=== PATIENT | female | born 1975 | race Caucasian/White ===

== ENCOUNTER 2016-11-24 12:40 | Emergency (ER) | payer BC ==
[~2016-11-24] VITALS: Ht 160 cm; Wt 126.6 kg
[2016-11-24] MEDS ORDERED: IV NORMAL SALINE 1000ML BAG 1,000 ML IV SCH (13:16)
--- NOTE | 2016-11-24 13:16 | PHYS DOC ---
Past Medical History Past Medical History: COPD, Fibromyalgia, Hypertension, Migraines, Other Additional Past Medical Histor: rapid heart rate Past Surgical History: Appendectomy, Cholecystectomy, Hysterectomy, Tonsillectomy, Other Additional Past Surgical Histo: addenoidectomy, CTR, eye surgery Additional Information: 11/09 ppd Alcohol Use: None Drug Use: None Adult General Chief Complaint Chief Complaint: NAUSEA/VOMITING/DIARRHA HPI HPI Patient is a 41 year old female who presents with body aches, nausea/vomiting, migraine. Patient reports she has had symptoms for the past 2 days. She also reports diarrhea, slight shortness of breath. She has been coughing a lot. She has tried some tramadol at home with insufficient relief. Due to mention of sharp pain in her chest she was given aspirin and nitroglycerin by EMS en route. No clear inciting or mitigating factors. Review of Systems Review of Systems Constitutional: Denies fever or chills Eyes: Denies change in visual acuity or eye pain HENT: Congestion Respiratory: Cough, shortness of breath Cardiovascular: Sharp, stabbing pain GI: Nausea/vomiting/diarrhea. Denies abdominal pain, bloody stools : Denies dysuria or hematuria Musculoskeletal: General body aches Integument: Denies rash or skin lesions Neurologic: Migraine (similar to prior). Denies focal weakness or sensory changes Current Medications Current Medications Current Medications Medications (Trade) Dose Ordered Sig/[facility]a Start Time Stop Time Status Last Admin Dose Admin Famotidine (Pepcid) 20 mg 1X ONCE 11/24/16 13:30 11/24/16 13:31 DC 11/24/16 13:30 20 MG Morphine Sulfate 4 mg 1X ONCE 11/24/16 13:30 11/24/16 13:31 DC 11/24/16 13:29 4 MG Prochlorperazine Edisylate (Compazine) 10 mg 1X ONCE 11/24/16 13:30 11/24/16 13:31 DC 11/24/16 13:31 10 MG Sodium Chloride (Iv Sodium Chloride 0.9% 1000ml Bag) 1,000 ml @ 1,000 mls/hr Q1H 11/24/16 13:16 11/24/16 14:15 DC 11/24/16 13:26 1,000 MLS/HR Allergies Allergies Allergies Coded Allergies Type Severity Reaction Last Updated Verified acetaminophen Allergy Severe throat swelling 11/24/16 Yes latex Allergy Severe anaphylaxis 11/24/16 Yes levofloxacin Allergy Severe rash 11/24/16 Yes Estrogens Allergy Intermediate rash 11/24/16 Yes Penicillins Allergy Unknown 11/24/16 Yes theophylline Allergy Unknown 11/24/16 Yes egg Adverse Reaction Intermediate nausea, vomiting 11/24/16 Yes Physical Exam Physical Exam Constitutional: Well developed, well nourished, no acute distress, non-toxic appearance HENT: Normocephalic, atraumatic, bilateral external ears normal Eyes: PERRL, EOMI, conjunctiva normal, no discharge Neck: Normal range of motion, no stridor Cardiovascular: Heart rate normal, regular rhythm, no murmur Lungs & Thorax: Bilateral breath sounds clear to auscultation Abdomen: Bowel sounds normal, soft, non-distended, no TTP Skin: Warm, dry, no erythema, no rash Extremities: No obvious deformity, no edema Neurologic: Alert and oriented X 3, no gross deficits noted Current Patient Data Vital Signs Vital Signs Date Time Temp Pulse Resp B/P Pulse Ox O2 Delivery O2 Flow Rate FiO2 11/24/16 15:16 68 16 118/74 95 11/24/16 14:06 Room Air 11/24/16 12:48 97.9 97.9 Lab Values Laboratory Tests Test 11/24/16 12:56 11/24/16 14:55 White Blood Count 11.2x10^3/uL (4.0-11.0) H Red Blood Count 5.07x10^6/uL (3.50-5.40) Hemoglobin 14.7g/dL (12.0-15.5) Hematocrit 44.0% (36.0-47.0) Mean Corpuscular Volume 87fL (79-100) Mean Corpuscular Hemoglobin 29pg (25-35) Mean Corpuscular Hemoglobin Concent 33g/dL (31-37) Red Cell Distribution Width 14.1% (11.5-14.5) Platelet Count 259x10^3/uL (140-400) Neutrophils (%) (Auto) 67% (31-73) Lymphocytes (%) (Auto) 24% (24-48) Monocytes (%) (Auto) 6% (0-9) Eosinophils (%) (Auto) 2% (0-3) Basophils (%) (Auto) 0% (0-3) Neutrophils # (Auto) 7.5x10^3uL (1.8-7.7) Lymphocytes # (Auto) 2.7x10^3/uL (1.0-4.8) Monocytes # (Auto) 0.7x10^3/uL (0.0-1.1) Eosinophils # (Auto) 0.2x10^3/uL (0.0-0.7) Basophils # (Auto) 0.0x10^3/uL (0.0-0.2) Sodium Level 140mmol/L (136-145) Potassium Level 4.4mmol/L (3.5-5.1) Chloride Level 104mmol/L (98-107) Carbon Dioxide Level 26mmol/L (21-32) Anion Gap 10 (6-14) Blood Urea Nitrogen 10mg/dL (7-20) Creatinine 0.7mg/dL (0.6-1.0) Estimated GFR (Cockcroft-Gault) 93.2 Glucose Level 112mg/dL (70-99) H Calcium Level 9.3mg/dL (8.5-10.1) Total Bilirubin 0.6mg/dL (0.2-1.0) Direct Bilirubin 0.1mg/dL (0.0-0.2) Aspartate Amino Transferase (AST) 18U/L (15-37) Alanine Aminotransferase (ALT) 27U/L (14-59) Alkaline Phosphatase 84U/L (46-116) Troponin I Quantitative < 0.017ng/mL (0.000-0.055) Total Protein 7.0g/dL (6.4-8.2) Albumin 3.7g/dL (3.4-5.0) Lipase 105U/L (73-393) Urine Collection Type Unknown Urine Color Yellow Urine Clarity Clear Urine pH 7.0 Urine Specific [place] <=1.005 Urine Protein Negativemg/dL (NEG-TRACE) Urine Glucose (UA) Negativemg/dL (NEG) Urine Ketones (Stick) Negativemg/dL (NEG) Urine Blood Negative (NEG) Urine Nitrite Negative (NEG) Urine Bilirubin Negative (NEG) Urine Urobilinogen Dipstick 1.0mg/dL (0.2 mg/dL) Urine Leukocyte Esterase Negative (NEG) Urine RBC 0/HPF (0-2) Urine WBC 0/HPF (0-4) Urine Squamous Epithelial Cells Few/LPF Urine Bacteria Few/HPF (0-FEW) Urine Test Negative (NEG) Laboratory Tests 11/24/16 12:56 Laboratory Tests 11/24/16 12:56 EKG EKG EKG (my read): sinus rhythm, rate 79, normal axis, intervals wnl, no acute ischemic changes Radiology/Procedures Radiology/Procedures CXR: IMPRESSION: Mild right parahilar linear atelectasis or scarring. Course & Med Decision Making Course & Med Decision Making Pertinent Labs and Imaging studies reviewed. (See chart for details) Patient is 41 year old female who presents with N/V, body aches, migraine, chest pain. Suspect viral illness; chest pain likely related to esophageal irritation from repeated vomiting. Very low suspicion for ACS. Already given ASA by EMS. Regardless will check EKG, CXR, labs, UA. IVF, pain meds, pepcid, nausea meds ordered for relief of symptoms. EKG ok per my read. CXR results as above. Labs notable for minimal leukocytosis. Troponin wnl; given duration of chest pain, this is sufficient to r/o PA. Discussed results with patient. Will plan discharge home rx for nausea meds and instructions for use of NSAIDs ( patient declined rx for naproxen as she already has it at home). Discharged with instructions for follow up and return precautions. Dragon Disclaimer Dragon Disclaimer This electronic medical record was generated, in whole or in part, using a voice recognition dictation system. Departure Departure Impression: Primary Impression: Viral syndrome Disposition: 01 HOME, SELF-CARE Condition: STABLE Referrals: NO PCP (PCP) Patient Instructions: Viral Syndrome Additional Instructions: Thank you for allowing us to provide care today in the Emergency Department. Take the provided medication as directed. Use caution when taking the promethazine as it can make you drowsy. Do not use the oral tablets and suppositories at the same time. Use naproxen to help with fever and body aches. Follow the directions on the label. Schedule a follow up appointment with your primary care doctor. Return promptly to the Emergency Department if you develop any new or concerning symptoms. Scripts Promethazine Hcl 25 Mg Supp.rect25 Mg RC Q6H PRN NAUSEA/VOMITING #10 SUPP.RECT Do not use if tolerating the oral promethazine tablets Prov:LOREN LOJA MD 11/24/16 Promethazine Hcl 25 Mg Jezydh27 Mg PO Q6H PRN NAUSEA/VOMITING #15 TAB Prov:LOREN LOJA MD 11/24/16 Ondansetron (Zofran Odt)4 Mg Tab.rapdis4 Mg PO Q8HRS PRN NAUSEA/VOMITING #10 TAB Prov:LOREN LOJA MD 11/24/16 LOREN LOJA MD Nov 24, 2016 13:16
[2016-11-24 13:28] LABS: BASO % 0 % (0-3); EOS % 2 % (0-3); HEMOGLOBIN 14.7 g/dL (12.0-15.5); LYMPH # 2.7 x10^3/uL (1.0-4.8); LYMPH % 24 % (24-48); MEAN CORPUSCULAR HEMOGLOBIN 29 pg (25-35); MEAN CORPUSCULAR HGB CONC 33 g/dL (31-37); MEAN CORPUSCULAR VOLUME 87 fL (79-100); MONO % 6 % (0-9); NEUT % 67 % (31-73); PLATELET COUNT 259 x10^3/uL (140-400); RED BLOOD COUNT 5.07 x10^6/uL (3.50-5.40); RED CELL DISTRIBUTION WIDTH 14.1 % (11.5-14.5); WHITE BLOOD COUNT 11.2 x10^3/uL (4.0-11.0)
[2016-11-24] MEDS ORDERED: PROCHLORPERAZINE 10 MG/2 ML VIAL. IV ONE (13:30)
[2016-11-24] MEDS ORDERED: FAMOTIDINE 20 MG/2 ML VIAL IVP ONE (13:30)
[2016-11-24] MEDS ORDERED: MORPHINE SULFATE 4 MG/ML DISP.SYRIN. IV ONE (13:30)
[2016-11-24 13:33] LABS: CALCIUM 9.3 mg/dL (8.5-10.1); CREATININE 0.7 mg/dL (0.6-1.0); GFR 93.2; POTASSIUM 4.4 mmol/L (3.5-5.1)
[2016-11-24 13:39] LABS: ALBUMIN 3.7 g/dL (3.4-5.0); DIRECT BILIRUBIN 0.1 mg/dL (0.0-0.2); TOTAL BILIRUBIN 0.6 mg/dL (0.2-1.0)
--- NOTE | 2016-11-24 13:54 | EKG ---
[facility] [address] [place] [address] Test Date: 2016-11-24 Test Time: 12:52:26 Pat Name: YESSICA GUTIERREZ Department: Room: Gender: F Batt Packer: : [id number] Requested By: LOREN LOJA Order Number: [id number] Reading MD: Sharron Hedrick Measurements Intervals [place] Rate: 79 P: 48 MI: 116 QRS: 38 QRSD: 106 T: 43 QT: 378 QTc: 440 Interpretive Statements SINUS RHYTHM NO SPECIFIC ECG ABNORMALITIES RI6.01 No previous ECG available for comparison Electronically Signed On 11-27-2016 0:04:57 COOPERATIVE EDUCATION DIRECTOR by Sharron Hedrick
--- NOTE | 2016-11-24 14:21 | RAD ---
Chest, 2 views, 11/24/2016: History: Chest pain and vomiting The heart size and pulmonary vascularity are normal. There is mild linear atelectasis or scarring in the right parahilar region. The left lung is clear. There is no evidence of pleural fluid. Mild scattered spurs are present in the spine. There is an old healed left clavicular fracture. IMPRESSION: Mild right parahilar linear atelectasis or scarring.
[2016-11-24 15:16] VITALS: BP 118/74
[2016-11-24 15:39] LABS: NEG OBC UR NEG; POS OBC UR POS
[2016-11-24 15:44] LABS: BILIRUBIN,URINE NEGATIVE (NEG); GLUCOSE,URINE NEGATIVE (NEG); NITRITE,URINE NEGATIVE (NEG); PROTEIN,URINE NEGATIVE (NEG-TRACE)
[2016-11-24 16:01] LABS: BACTERIA,URINE FEW /HPF (0-FEW); RBC,URINE 0 /HPF (0-2); SQUAMOUS EPITHELIAL CELL,UR FEW /LPF; WBC,URINE 0 /HPF (0-4)
[2016-11-24] MEDS ORDERED: ONDA4TAB10 PO (16:14)
[2016-11-24] MEDS ORDERED: PROM25SU33 RC (16:14)
[2016-11-24] MEDS ORDERED: PROM25TA10 PO (16:14)
== END 2016-11-24 16:35 | disposition home or self-care (01) ==
LOC: ER 12:40
DX: B34.9 Viral infection, unspecified (principal); R07.9 Chest pain, unspecified; I10 Essential (primary) hypertension; G43.909 Migraine, unspecified, not intractable, without status migrainosus; J44.9 Chronic obstructive pulmonary disease, unspecified; M79.7 Fibromyalgia; Z90.49 Acquired absence of other specified parts of digestive tract; Z90.710 Acquired absence of both cervix and uterus; F17.200 Nicotine dependence, unspecified, uncomplicated; Z88.8 Allergy status to other drugs, medicaments and biological substances; Z88.0 Allergy status to penicillin; Z91.012 Allergy to eggs; Z91.040 Latex allergy status; Z88.6 Allergy status to analgesic agent
CPT/HCPCS: 36415; 71020; 80048; 80076; 81001; 81025; 83690; 84484; 85027; 93005; 96361; 96374; 96375; 99285; J0780; J2270; J7030; S0028

== ENCOUNTER 2017-03-31 10:16 | Emergency (ER) | payer BC ==
[~2017-03-31] VITALS: Ht 160 cm; Wt 124.7 kg
[~2017-03-31 10:16] MED LIST: ONDA4TAB10 PO; PROM25SU33 RC; PROM25TA10 PO
[2017-03-31] MEDS ORDERED: PROCHLORPERAZINE 10 MG/2 ML VIAL. IV ONE (11:00)
[2017-03-31] MEDS ORDERED: diphenhydrAMINE 50 MG/ML VIAL IVP ONE (11:00)
[2017-03-31] MEDS ORDERED: KETOROLAC TROMETHAMINE 30 MG/ML INJ. IV ONE (11:00)
--- NOTE | 2017-03-31 11:14 | PHYS DOC ---
Past Medical History Past Medical History: COPD, Diabetes-Type II, Fibromyalgia, Hypertension, Migraines, Other Additional Past Medical Histor: rapid heart rate Past Surgical History: Appendectomy, Cholecystectomy, Hysterectomy, Tonsillectomy, Other Additional Past Surgical Histo: addenoidectomy, CTR, eye surgery Alcohol Use: None Drug Use: None Adult General Chief Complaint Chief Complaint: HEADACHE HPI HPI Patient is a 42 year old female with migraines who presents with gradual onset headache associated with nausea, photophobia, phonophobia that is typical of her migraine. She has increased stress at this time because of her husbands hospitalization. She notes constant headache that is aching and throbbing she denies vision changes, dizziness, numbness, tingling, weakness, neck pain or manipulation, chest pain, palpitations, dyspnea, fever or chills, emesis. Review of Systems Review of Systems Constitutional: Denies fever or chills [] Eyes: Denies change in visual acuity, redness, or eye pain [] HENT: Denies nasal congestion or sore throat [] Respiratory: Denies cough or shortness of breath [] Cardiovascular: No additional information not addressed in HPI [] GI: Denies abdominal pain, vomiting, bloody stools or diarrhea [] : Denies dysuria or hematuria [] Musculoskeletal: Denies back pain or joint pain [] Integument: Denies rash or skin lesions [] Neurologic: Denies focal weakness or sensory changes [] Endocrine: Denies polyuria or polydipsia [] Current Medications Current Medications Current Medications Medications (Trade) Dose Ordered Sig/Maya Start Time Stop Time Status Last Admin Dose Admin Diphenhydramine HCl (Benadryl) 25 mg 1X ONCE 03/31/17 11:00 03/31/17 11:01 DC 03/31/17 11:32 25 MG Ketorolac Tromethamine (Toradol) 15 mg 1X ONCE 03/31/17 11:00 03/31/17 11:01 DC 03/31/17 11:32 15 MG Prochlorperazine Edisylate (Compazine) 10 mg 1X ONCE 03/31/17 11:00 03/31/17 11:01 DC 03/31/17 11:32 10 MG Allergies Allergies Allergies Coded Allergies Type Severity Reaction Last Updated Verified acetaminophen Allergy Severe throat swelling 11/24/16 Yes latex Allergy Severe anaphylaxis 11/24/16 Yes levofloxacin Allergy Severe rash 11/24/16 Yes Estrogens Allergy Intermediate rash 11/24/16 Yes Penicillins Allergy Unknown 11/24/16 Yes theophylline Allergy Unknown 11/24/16 Yes egg Adverse Reaction Intermediate nausea, vomiting 11/24/16 Yes Physical Exam Physical Exam Constitutional: Well developed, well nourished, no acute distress, non-toxic appearance. [] HENT: Normocephalic, atraumatic, bilateral external ears normal, oropharynx moist, no oral exudates, nose normal. [] Eyes: PERRLA, EOMI, conjunctiva normal, no discharge. [] Neck: Normal range of motion, supple. [] Cardiovascular:Heart rate regular rhythm [] Lungs & Thorax: Bilateral breath sounds clear to auscultation [] Abdomen: Bowel sounds normal, soft, no tenderness. [] Skin: Warm, dry, no erythema, no rash. [] Back: Normal range of motion. [] Extremities: No tenderness, ROM intact, no edema. [] Neurologic: Alert and oriented X 3, normal motor function, normal sensory function, no focal deficits noted, cranial nerves II through XII intact. [] Psychologic: Affect normal, judgement normal, mood normal. [] Current Patient Data Vital Signs Vital Signs Date Time Temp Pulse Resp B/P (MAP) Pulse Ox O2 Delivery O2 Flow Rate FiO2 03/31/17 10:43 98.0 92 18 165/93 (117) 96 Room Air 98.0 Course & Med Decision Making Course & Med Decision Making Pertinent Labs and Imaging studies reviewed. (See chart for details) Headache is improved after medications and she is ready to go. Return precautions given. She understands and agrees with plan. Dragon Disclaimer Dragon Disclaimer This electronic medical record was generated, in whole or in part, using a voice recognition dictation system. Departure Departure Impression: Primary Impression: Migraine Disposition: 01 HOME, SELF-CARE Condition: STABLE Referrals: ANGEL KASPER MD Patient Instructions: Recurrent Migraine Headache, [id number] Additional Instructions: Follow-up with your primary care doctor or neurology clinic. Please call for appointment. Return for any concerns. Problem Qualifiers Primary Impression: Migraine Migraine type: unspecified Status migrainosus presence: without status migrainosus Intractability: not intractable Qualified Codes: G43.909 - Migraine, unspecified, not intractable, without status migrainosus Raul JOINER MD March 31, 2017 11:14
[2017-03-31 12:39] VITALS: BP 102/77
== END 2017-03-31 12:45 | disposition home or self-care (01) ==
LOC: ER 10:16
DX: G43.909 Migraine, unspecified, not intractable, without status migrainosus (principal); J44.9 Chronic obstructive pulmonary disease, unspecified; E11.9 Type 2 diabetes mellitus without complications; I10 Essential (primary) hypertension; M79.7 Fibromyalgia; Z88.0 Allergy status to penicillin; Z88.8 Allergy status to other drugs, medicaments and biological substances; Z88.6 Allergy status to analgesic agent; Z88.1 Allergy status to other antibiotic agents; Z91.012 Allergy to eggs; Z91.040 Latex allergy status
CPT/HCPCS: 96374; 96375; 99284; J0780; J1200; J1885

== ENCOUNTER 2017-04-15 03:10 | Inpatient (IN) | payer BC ==
[~2017-04-15] VITALS: Ht 157.5 cm; Wt 124.7 kg
--- NOTE | 2017-04-15 03:21 | PHYS DOC ---
Past Medical History Past Medical History: COPD, Diabetes-Type II, Fibromyalgia, Hypertension, Migraines, Other Additional Past Medical Histor: rapid heart rate Past Surgical History: Appendectomy, Cholecystectomy, Hysterectomy, Tonsillectomy, Other Additional Past Surgical Histo: addenoidectomy, CTR, eye surgery Alcohol Use: None Drug Use: None Adult General Chief Complaint Chief Complaint: CHEST PAIN HPI HPI Patient is a 42 year old female presenting to the emergency department for evaluation of chest pain that started at work shortly prior to arrival. Patient states that she was at work doing her usual rounds not particularly exerting herself when she felt a heavy sensation on her left chest that caused her nausea vomiting diaphoresis and shortness of breath. She says that the nitroglycerin in route helped her pain and she was given a full dose aspirin. Patient says that she has diabetes hypertension and high cholesterol but she has not been taking her blood pressure medication that she cannot afford it. Patient says that she had a heart attack in 2012 but has had no stents placed. Patient is in no obvious distress with normal vital signs except mild hypertension. Review of Systems Review of Systems Constitutional: Denies fever or chills [] Eyes: Denies change in visual acuity, redness, or eye pain [] HENT: Denies nasal congestion or sore throat [] Respiratory: Denies cough. + shortness of breath [] Cardiovascular: + CP GI: Denies abdominal pain. + nausea, vomiting. No bloody stools or diarrhea [] : Denies dysuria or hematuria [] Musculoskeletal: Denies back pain or joint pain [] Integument: Denies rash or skin lesions [] Neurologic: Denies headache, focal weakness or sensory changes [] Current Medications Current Medications Current Medications Medications (Trade) Dose Ordered Sig/[facility] Start Time Stop Time Status Last Admin Dose Admin Morphine Sulfate 5 mg 1X ONCE 04/15/17 04:00 04/15/17 04:01 DC 04/15/17 04:03 5 MG Ondansetron HCl (Zofran) 8 mg 1X ONCE 04/15/17 04:00 04/15/17 04:01 DC 04/15/17 04:03 8 MG Allergies Allergies Allergies Coded Allergies Type Severity Reaction Last Updated Verified acetaminophen Allergy Severe throat swelling 11/24/16 Yes latex Allergy Severe anaphylaxis 11/24/16 Yes levofloxacin Allergy Severe rash 11/24/16 Yes Estrogens Allergy Intermediate rash 11/24/16 Yes Penicillins Allergy Intermediate 04/15/17 Yes theophylline Allergy Intermediate 04/15/17 Yes egg Adverse Reaction Intermediate nausea, vomiting 11/24/16 Yes Physical Exam Physical Exam Constitutional: Well developed, well nourished, no acute distress, non-toxic appearance. [] HENT: Normocephalic, atraumatic, bilateral external ears normal, oropharynx moist, no oral exudates, nose normal. [] Eyes: PERRLA, EOMI, conjunctiva normal, no discharge. [] Neck: Normal range of motion, no tenderness, supple, no stridor. [] Cardiovascular:Heart rate regular rhythm, no murmur [] Lungs & Thorax: Bilateral breath sounds clear to auscultation [] Abdomen: Bowel sounds normal, soft, no tenderness, no masses, no pulsatile masses. [] Skin: Warm, dry, no erythema, no rash. [] Back: No tenderness, no CVA tenderness. [] Extremities: No tenderness, no cyanosis, no clubbing, ROM intact, no edema. [] Neurologic: Alert and oriented X 3, normal motor function, normal sensory function, no focal deficits noted. [] Psychologic: Affect normal, judgement normal, mood normal. [] Current Patient Data Vital Signs Vital Signs Date Time Temp Pulse Resp B/P (MAP) Pulse Ox O2 Delivery O2 Flow Rate FiO2 04/15/17 03:22 98.0 93 20 156/94 (114) 96 Room Air 98.0 Lab Values Laboratory Tests Test 04/15/17 03:45 04/15/17 03:47 White Blood Count 11.3 x10^3/uL (4.0-11.0) H Red Blood Count 4.71 x10^6/uL (3.50-5.40) Hemoglobin 13.9 g/dL (12.0-15.5) Hematocrit 41.6 % (36.0-47.0) Mean Corpuscular Volume 88 fL (79-100) Mean Corpuscular Hemoglobin 30 pg (25-35) Mean Corpuscular Hemoglobin Concent 34 g/dL (31-37) Red Cell Distribution Width 14.4 % (11.5-14.5) Platelet Count 276 x10^3/uL (140-400) Neutrophils (%) (Auto) 47 % (31-73) Lymphocytes (%) (Auto) 41 % (24-48) Monocytes (%) (Auto) 7 % (0-9) Eosinophils (%) (Auto) 5 % (0-3) H Basophils (%) (Auto) 1 % (0-3) Neutrophils # (Auto) 5.3 x10^3uL (1.8-7.7) Lymphocytes # (Auto) 4.7 x10^3/uL (1.0-4.8) Monocytes # (Auto) 0.8 x10^3/uL (0.0-1.1) Eosinophils # (Auto) 0.5 x10^3/uL (0.0-0.7) Basophils # (Auto) 0.1 x10^3/uL (0.0-0.2) Prothrombin Time 12.1 SEC (11.7-14.0) Prothrombin Time INR 1.0 (0.8-1.1) PTT 27 SEC (24-38) Sodium Level 141 mmol/L (136-145) Potassium Level 3.7 mmol/L (3.5-5.1) Chloride Level 103 mmol/L (98-107) Carbon Dioxide Level 27 mmol/L (21-32) Anion Gap 11 (6-14) Blood Urea Nitrogen 7 mg/dL (7-20) Creatinine 0.9 mg/dL (0.6-1.0) Estimated GFR (Cockcroft-Gault) 69.3 BUN/Creatinine Ratio 8 (6-20) Glucose Level 119 mg/dL (70-99) H Calcium Level 9.0 mg/dL (8.5-10.1) Magnesium Level 2.2 mg/dL (1.8-2.4) Total Bilirubin 0.3 mg/dL (0.2-1.0) Aspartate Amino Transferase (AST) 76 U/L (15-37) H Alanine Aminotransferase (ALT) 151 U/L (14-59) H Alkaline Phosphatase 94 U/L (46-116) Creatine Kinase 72 U/L (26-192) Troponin I Quantitative < 0.017 ng/mL (0.000-0.055) PR-Ujr-M-Type Natriuretic Peptide 8 pg/mL (0-124) Total Protein 7.3 g/dL (6.4-8.2) Albumin 3.3 g/dL (3.4-5.0) L Albumin/Globulin Ratio 0.8 (1.0-1.7) L POC Troponin I 0.00 ng/ml (<0.08) Laboratory Tests 04/15/17 03:45 Laboratory Tests 04/15/17 03:45 EKG EKG Sinus rhythm at 95 bpm with normal axis no obvious ST elevation or depression and normal T waves. Radiology/Procedures Radiology/Procedures Chest x-ray shows normal mediastinum and normal heart size no obvious free air pneumothorax or opacity Course & Med Decision Making Course & Med Decision Making Patient has some typical features to her pain and she has multiple risk factors so she will be admitted to the hospital. Dragon Disclaimer Dragon Disclaimer This electronic medical record was generated, in whole or in part, using a voice recognition dictation system. Departure Departure Impression: Primary Impression: Chest pain Additional Impression: Transaminitis Disposition: ADMITTED INPATIENT Admitting Physician: Prasanna Lawton Condition: STABLE Referrals: UNKNOWN PCP NAME (PCP) Problem Qualifiers Primary Impression: Chest pain Chest pain type: unspecified Qualified Codes: R07.9 - Chest pain, unspecified AKILA RED DO Apr 15, 2017 03:21
[2017-04-15 03:54] LABS: BASO # 0.1 x10^3/uL (0.0-0.2); BASO % 1 % (0-3); EOS % 5 % (0-3); HEMATOCRIT 41.6 % (36.0-47.0); HEMOGLOBIN 13.9 g/dL (12.0-15.5); LYMPH # 4.7 x10^3/uL (1.0-4.8); LYMPH % 41 % (24-48); MEAN CORPUSCULAR HEMOGLOBIN 30 pg (25-35); MEAN CORPUSCULAR HGB CONC 34 g/dL (31-37); MEAN CORPUSCULAR VOLUME 88 fL (79-100); MONO % 7 % (0-9); NEUT % 47 % (31-73); PLATELET COUNT 276 x10^3/uL (140-400); RED BLOOD COUNT 4.71 x10^6/uL (3.50-5.40); RED CELL DISTRIBUTION WIDTH 14.4 % (11.5-14.5); WHITE BLOOD COUNT 11.3 x10^3/uL (4.0-11.0)
[2017-04-15] MEDS ORDERED: ONDANSETRON PF 4 MG/2 ML VIAL. IV ONE (04:00)
[2017-04-15] MEDS ORDERED: MORPHINE SULFATE 10 MG/ML VIAL. IV ONE (04:00)
[2017-04-15 04:05] LABS: PROTHROMBIN TIME PATIENT 12.1 SEC (11.7-14.0)
[2017-04-15 04:06] LABS: CREATININE 0.9 mg/dL (0.6-1.0); GFR 69.3; POTASSIUM 3.7 mmol/L (3.5-5.1)
[2017-04-15 04:12] LABS: ALBUMIN 3.3 g/dL (3.4-5.0); ALBUMIN/GLOBULIN RATIO 0.8 (1.0-1.7); MAGNESIUM 2.2 mg/dL (1.8-2.4); TOTAL BILIRUBIN 0.3 mg/dL (0.2-1.0); TOTAL PROTEIN 7.3 g/dL (6.4-8.2)
[2017-04-15] MEDS ORDERED: ONDANSETRON PF 4 MG/2 ML VIAL. IV PRN (04:15)
[2017-04-15] MEDS: fentaNYL PF VIAL 100 MCG/2 ML VIAL IV PRN ×4 (04:41→14:01)
--- NOTE | 2017-04-15 04:52 | ACF ---
Admission Forms Criteria CHEST PAIN Clinical Indications for Admission to Inpatient Care (Place 'X' for any and all applicable criteria): Admission is indicated for chest pain and ANY ONE of the following(1)(2)(3)(4)(5 ): [ ]I. Angina with acute coronary syndrome (Also use Myocardial Infarction or Angina guideline) [ ]II. Hemodynamic instability [ ]III. Angina needing acute intervention as indicated by ALL of the following( 11)(12): [ ]a) Unstable angina is present as indicated by angina that is ANY ONE of the following: [ ]i) New onset [ ]ii) Nocturnal [ ]iii) Prolonged at rest [ ]iv) Progressive [ ]b) Angina warrants acute intervention as indicated by ANY ONE of the following: [ ]i) Recurrent angina (e.g, not responding as previously to treatment) [ ]ii) Angina at rest or with low-level activities despite initial medical therapy [ ]iii) New or presumably new ST-segment depression on ECG [ ]iv) Signs or symptoms of heart failure (eg, dyspnea, pulmonary edema) [ ]v) New or worsening mitral regurgitation [ ]vi) Hemodynamic instability [ ]vii) Dangerous arrhythmia (eg, sustained ventricular tachycardia) [ ]viii) History of percutaneous coronary intervention within 6 months [ ]ix) History of coronary artery bypass graft surgery [ ]x) CHERYLE risk score of 2 or greater[A] [ ]xi) History of Diabetes(14) [ ]xii) High-risk cardiac ischemia findings on noninvasive testing (e.g, echocardiogram, treadmill testing, nuclear scan) [ ]xiii) Chronic renal insufficiency (ie, estimated GFR less than 60 mL/min/1.732m) [ ]xiv) Left ventricular ejection fraction less than 40% [ ]IV. Evidence of HI (eg, cardiac biomarkers positive, ST-segment elevation on ECG) also use Myocardial Infarction Criteria Form. [ ]V. Pulmonary edema [ ]. Respiratory distress [ ]VII. Chest pain indicative of serious diagnosis other than coronary artery disease (eg, aortic dissection) [ ]VIII. Contraindications and/or Inappropriate clinical situations for Observational Care in patients with Chest Pain, when ANY ONE of the following is required: [ ]a) Patient with risk factor for pulmonary embolism, acute coronary syndrome and myocardial infarction (18) [ ]b) Patient with Pulmonary embolism require an average LOS of 4.3 days, therefore emergency department observation management is inappropriate 18,23 [ ]c) Painful condition/s in the elderly, have the highest rate of recidivism after emergency department observation management (10.8%) 20,21,22 [ ]d) Elevated cardiac biomarker requires intensive and exhaustive care (19) [X]IX. General contraindications and/or Inappropriate clinical situations for Observational Care in patients with Chest Pain, when ANY ONE of the following is required: [X]a) Prediction of prolongation of LOS based on ANY ONE of the following may be considered as a contraindication for observational care 2, 3, 4, 5, 6, 7, 8, 9, 10, 11 [ ]i) Age > 65 yrs. [ ]ii) Patient arriving by ambulance [ ]iii) Patient with high acuity [X]iv) Patient requiring vital sign monitoring [ ]v) Patient on IV medication [ ]b) Systolic blood pressures 180mmHg 3,12 [ ]c) Patient with altered mental status including delirium and other alteration of consciousness, (3) [ ]d) Patient whose discharge disposition will be to a retirement home or rehabilitation home should not be managed in Emergency Department Observation Unit. CMS rule requires 3 days hospital stay before such placement. 3,13 [ ]e) Patient with failure to thrive due to broad array of etiologies 3,16,17 [ ]f) Inability to ambulate 3,14 Extended stay beyond goal length of stay may be needed for (1)(28): [ ]a) Specific condition diagnosed after evaluation (eg, pulmonary embolism, aortic dissection) [ ]b) Unstable angina [ ]c) Continued suspicion of acute coronary syndrome with inability to complete needed cardiac evaluation (eg, patient clinically unable to undergo stress testing) [ ]d) Myocardial infarction (Contents from ANGINA and CHEST PAIN clinical indications for admission to inpatient care have been integrated in this form) The original [facility] content created by [employer] has been revised. The portions of the content which have been revised are identified through the use of italic text or in bold, and [facility] has neither reviewed nor approved the modified material. All other unmodified content is copyright [employer]. Please see references footnoted in the original [facility] edition 2016 Admission Criteria Met?: Yes LUIS HEMPHILL Apr 15, 2017 04:52
[2017-04-15 05:20] VITALS: BP 133/98
--- NOTE | 2017-04-15 06:37 | EKG ---
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
[2017-04-15 07:00] VITALS: BP 118/80
--- NOTE | 2017-04-15 07:30 | RAD ---
Indication chest pain. A single view of the chest was obtained. Comparison is made to an examination November 24, 2016. The heart, pulmonary vessels and mediastinum appear normal. The lungs are clear. There is no pleural fluid or pneumothorax. There is a healed left clavicular fracture. IMPRESSION: No acute or focal process seen in the chest
--- NOTE | 2017-04-15 10:25 | PDOC2 ---
JAME AGUILAR TABLE RUNNER 04/15/17 1025: CARDIAC CONSULT DATE OF CONSULT Date of Consult DATE: 04/15/17 TIME: 10:18 REASON FOR CONSULT Reason for Consult: Chest Pain REFERRING PHYSICIAN Referring Physician: Dr. Stokes SOURCE Source: Chart review, Patient HISTORY OF PRESENT ILLNESS HISTORY OF PRESENT ILLNESS This is a 42 yo female who presented with complaints of chest pain. Patient reports pain began early this morning while at work. 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 Located in her left chest and radiated to left neck and to her left arm. Pain was initially pressure-like but eventually became stabbing in nature. Associated with "cold sweats" and nausea/ vomiting. Denies any shortness of breath, dizziness, or LE edema. Does have occasional palpitations. Chest pain has been continuous since admission, but is improved with fentanyl. Exacerbated by pressing on the left chest. Reports significant stress at home dye ti financial constraints. Is losing home and will have to move soon. Reports history of hypertension for which she was previously on metoprolol and lisinopril, but has not taken in 3-4 months. EKG without significant acute changes compared to study conducted 11/24/16. PAST MEDICAL HISTORY Cardiovascular: HTN, Hyperlipidemia Pulmonary: COPD CENTRAL NERVOUS SYSTEM: Periperal neuropathy GI: No pertinent hx Heme/Onc: Cancer (cervical ) Psych: Anxiety, Depression Rheumatologic: Fibromyalgia Endocrine: Diabetes PAST SURGICAL HISTORY Past Surgical History: Appendectomy, Cholecystectomy, Total knee replacement ( left ), Tonsillectomy (and adenoidectomy ), Hysterectomy FAMILY HISTORY Family History: Diabetes, Heart Disease, High Cholestrol, Hypertension SOCIAL HISTORY Smoke: <1 pack per day ALCOHOL: occassional Drugs: None Lives: with Family CURRENT MEDICATIONS CURRENT MEDICATIONS Current Medications Medications (Trade) Dose Ordered Sig/Maya Route PRN Reason Start Time Stop Time Status Last Admin Dose Admin Morphine Sulfate 5 mg 1X ONCE IV 04/15/17 04:00 04/15/17 04:01 DC 04/15/17 04:03 Ondansetron HCl (Zofran) 8 mg 1X ONCE IV 04/15/17 04:00 04/15/17 04:01 DC 04/15/17 04:03 Fentanyl Citrate (Fentanyl 2ml Vial) 50 mcg PRN Q2HR PRN IV SEVERE PAIN 04/15/17 04:15 04/16/17 04:14 04/15/17 06:34 ALLERGIES ALLERGIES: Coded Allergies: acetaminophen (Verified Allergy, Severe, throat swelling, 11/24/16) latex (Verified Allergy, Severe, anaphylaxis, 11/24/16) levofloxacin (Verified Allergy, Severe, rash, 11/24/16) Estrogens (Verified Allergy, Intermediate, rash, 11/24/16) Penicillins (Verified Allergy, Intermediate, 04/15/17) theophylline (Verified Allergy, Intermediate, 04/15/17) egg (Verified Adverse Reaction, Intermediate, nausea, vomiting, 11/24/16) ROS Review of System 14 point ROS conducted with pertinent positives noted above in HPI. PHYSICAL EXAM General: Alert, Oriented X3, Cooperative, No acute distress HEENT: Atraumatic Lungs: Clear to auscultation, Normal air movement Heart: Regular rate, Normal S1, Normal S2, No murmurs, Other (left chest tenderness upon palpation) Abdomen: Soft, No tenderness Extremities: No edema, Normal pulses Skin: No significant lesion Neuro: Normal speech, Sensation intact Psych/Mental Status: Mental status NL, Mood NL MUSCULOSKELETAL: No joint tenderness VITALS VITALS Vital Signs Date Time Temp Pulse Resp B/P (MAP) Pulse Ox O2 Delivery O2 Flow Rate FiO2 04/15/17 08:15 Room Air 04/15/17 07:20 95 04/15/17 07:00 98.4 72 20 118/80 (93) 98.4 LABS Lab: Laboratory Tests Test 04/15/17 03:45 04/15/17 03:47 White Blood Count 11.3 x10^3/uL (4.0-11.0) Red Blood Count 4.71 x10^6/uL (3.50-5.40) Hemoglobin 13.9 g/dL (12.0-15.5) Hematocrit 41.6 % (36.0-47.0) Mean Corpuscular Volume 88 fL (79-100) Mean Corpuscular Hemoglobin 30 pg (25-35) Mean Corpuscular Hemoglobin Concent 34 g/dL (31-37) Red Cell Distribution Width 14.4 % (11.5-14.5) Platelet Count 276 x10^3/uL (140-400) Neutrophils (%) (Auto) 47 % (31-73) Lymphocytes (%) (Auto) 41 % (24-48) Monocytes (%) (Auto) 7 % (0-9) Eosinophils (%) (Auto) 5 % (0-3) Basophils (%) (Auto) 1 % (0-3) Neutrophils # (Auto) 5.3 x10^3uL (1.8-7.7) Lymphocytes # (Auto) 4.7 x10^3/uL (1.0-4.8) Monocytes # (Auto) 0.8 x10^3/uL (0.0-1.1) Eosinophils # (Auto) 0.5 x10^3/uL (0.0-0.7) Basophils # (Auto) 0.1 x10^3/uL (0.0-0.2) Prothrombin Time 12.1 SEC (11.7-14.0) Prothromb Time International Ratio 1.0 (0.8-1.1) Activated Partial Thromboplast Time 27 SEC (24-38) Sodium Level 141 mmol/L (136-145) Potassium Level 3.7 mmol/L (3.5-5.1) Chloride Level 103 mmol/L (98-107) Carbon Dioxide Level 27 mmol/L (21-32) Anion Gap 11 (6-14) Blood Urea Nitrogen 7 mg/dL (7-20) Creatinine 0.9 mg/dL (0.6-1.0) Estimated GFR (Cockcroft-Gault) 69.3 BUN/Creatinine Ratio 8 (6-20) Glucose Level 119 mg/dL (70-99) Calcium Level 9.0 mg/dL (8.5-10.1) Magnesium Level 2.2 mg/dL (1.8-2.4) Total Bilirubin 0.3 mg/dL (0.2-1.0) Aspartate Amino Transf (AST/SGOT) 76 U/L (15-37) Alanine Aminotransferase (ALT/SGPT) 151 U/L (14-59) Alkaline Phosphatase 94 U/L (46-116) Creatine Kinase 72 U/L (26-192) Troponin I Quantitative < 0.017 ng/mL (0.000-0.055) VV-Fta-S-Type Natriuretic Peptide 8 pg/mL (0-124) Total Protein 7.3 g/dL (6.4-8.2) Albumin 3.3 g/dL (3.4-5.0) Albumin/Globulin Ratio 0.8 (1.0-1.7) Bedside Troponin I 0.00 ng/ml (<0.08) ASSESSMENT/PLAN ASSESSMENT/PLAN 1. Chest pain, atypical 2. Hypertension 3. Hyperlipidemia 4. Palpitations 5. Diabetes 6. Fibromyalgia 7. COPD Recommendations ASA Check lipids, TSH Resume BB and HIREN Check echo to assess LV function/presence of WMA Suspect pain is MSK in origin as it is reproducible with palpation to left chest If echo WNL and second troponin negative, may discharge from cardiac standpoint with followup in office in 4 weeks. Will consider treadmill MPI if symptoms recurrent. Problems: JEWEL ALLRED MD 04/15/17 1729: CARDIAC CONSULT ALLERGIES ALLERGIES: Coded Allergies: acetaminophen (Verified Allergy, Severe, throat swelling, 11/24/16) latex (Verified Allergy, Severe, anaphylaxis, 11/24/16) levofloxacin (Verified Allergy, Severe, rash, 11/24/16) Estrogens (Verified Allergy, Intermediate, rash, 11/24/16) Penicillins (Verified Allergy, Intermediate, 04/15/17) theophylline (Verified Allergy, Intermediate, 04/15/17) egg (Verified Adverse Reaction, Intermediate, nausea, vomiting, 11/24/16) ASSESSMENT/PLAN ASSESSMENT/PLAN Patient seen and examined. Agree with above nurse practitioner note. 42-year-old woman presenting with noncardiac chest pain. Normal cardiac exam. Normal echocardiogram. Supportive care. Okay to discharge. Problems: JAME AGUILAR APRN Apr 15, 2017 10:25 JEWEL ALLRED MD Apr 15, 2017 17:29
[2017-04-15 11:00] VITALS: BP 110/69
[2017-04-15] MEDS ORDERED: ASPIRIN 325 MG TABLET PO SCH (11:15)
[2017-04-15 11:16] LABS: CHOLESTEROL/HDL RATIO 6.4
[2017-04-15] MEDS ORDERED: LISINOPRIL 5 MG TABLET. PO SCH (11:30)
[2017-04-15] MEDS ORDERED: METOPROLOL SUCC 24HR ER 25 MG TAB.ER.24H. PO SCH (11:30)
--- NOTE | 2017-04-15 12:18 | CARD ---
APPROVED REPORT EXAM: Two-dimensional and M-mode echocardiogram with Doppler, color Doppler with contrast. Other Information Quality : Average Rhythm : NSR INDICATION Chest Pain History of PFO Echo Enhancing Agent Indication: Rule Out Septal Defect Agent/Amount Used: Agitated Saline 8mL 2D DIMENSIONS RVDd2.8 (2.9-3.5cm)Left Atrium(2D)3.0 (1.6-4.0cm) IVSd1.3 (0.7-1.1cm)Aortic Root(2D)2.4 (2.0-3.7cm) LVDd4.5 (3.9-5.9cm)LVOT Diameter2.1 (1.8-2.4cm) PWd1.3 (0.7-1.1cm)LVDs2.8 (2.5-4.0cm) FS (%) 37.5 %SV61.1 ml LVEF(%)67.7 (>50%) Aortic Valve AoV Peak Gianluca.152.0cm/sAoV VTI31.4cm AO Peak GR.9.2mmHgLVOT Peak Gianluca.102.9cm/s LVOT VTI 20.50cmAO Mean GR.5mmHg RAYNE (VMAX)2.41ox8BYF (VTI)2.20cm2 Mitral Valve MV E Nmfqtudu20.7cm/sMV DECEL SJPD902dh MV A Rjeitfbw72.4cm/sMV DIB68ih E/A Ratio1.7MV A Kpxzcheo783bu MVA (PHT)2.98cm2 TDI E/Lateral E'7.0E/Medial E'6.6 Pulmonary Valve PV Peak Tzrypubg567.4cm/sPV Peak Grad.5mmHg RVOT VTI19.1cm Tricuspid Valve TR P. Nulxgoxk789kg/sRAP XAANKJVY5iqFp TR Peak Gr.32pnHrOZJC00yxPm Pulmonary Vein S1 Nrorduky44.7cm/sD2 Gqxhkzld30.0cm/s LEFT VENTRICLE The left ventricle is normal size. There is borderline to mild concentric left ventricular hypertroph y. Left ventricle systolic function is normal. The Ejection Fraction is 60-65%. There is normal LV se gmental wall motion. The left ventricular diastolic function and filling is normal for age. There is no ventricular septal defect visualized. RIGHT VENTRICLE The right ventricle is normal size. The right ventricular systolic function is normal. ATRIA The left atrium size is normal. The right atrium size is normal. The interatrial septum is intact wit h no evidence for an atrial septal defect or patent foramen ovale as noted on 2-D or Doppler imaging. No evidence of interatrial shunt by agitated saline contrast. AORTIC VALVE The aortic valve is normal in structure and function. The aortic valve is trileaflet. Doppler and Col or Flow revealed no significant aortic regurgitation. There is no significant aortic valvular stenosi s. MITRAL VALVE The mitral valve is normal in structure and function. There is no mitral valve stenosis. Doppler and Color Flow revealed no mitral valve regurgitation noted. TRICUSPID VALVE The tricuspid valve is normal in structure and function. Doppler and Color Flow revealed trace tricus pid regurgitation. The PA pressure was estimated at 21 mmHg. There is no tricuspid valve stenosis. PULMONIC VALVE The pulmonic valve is not well visualized. Doppler and Color Flow revealed no pulmonic valvular regur gitation. There is no pulmonic valvular stenosis. GREAT VESSELS The aortic root is normal in size. Normal pulmonary venous flow (Doppler). The IVC is normal in size and collapses >50% with inspiration. PERICARDIAL EFFUSION There is no evidence of significant pericardial effusion. Critical Notification Critical Value: No <Conclusion> Left ventricle systolic function is normal. The Ejection Fraction is 60-65%. There is normal LV segmental wall motion.
[2017-04-15 15:00] VITALS: BP 115/68
[2017-04-15] MEDS ORDERED: METO25TA9 PO (16:25)
[2017-04-15] MEDS ORDERED: OXYC5CAP PO (16:25)
[2017-04-15] MEDS ORDERED: PANT20TA2 PO (16:25)
[2017-04-15] MEDS ORDERED: LISI-338 PO (16:25)
--- NOTE | 2017-04-15 21:35 | SSS ---
ADMIT DATE: 04/15/2017 CHIEF COMPLAINT: Chest pain. HISTORY OF PRESENT ILLNESS: The patient is a 42-year-old obese woman with past medical history of COPD, diabetes, and migraines, who presented to the Emergency Room with chest pain. She relates this started at about 4:00 at work prior to arrival. 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 This was associated with diaphoresis, shortness of breath as well as nausea. En route, she received nitro, which seemed to help her pain and she was also given a full dose of aspirin. She states that she actually has a history of heart attack in 2012 without any stent placements at that time. The patient was admitted to [facility] for further observation. PAST MEDICAL HISTORY: Hypertension, diabetes, COPD, history of rapid heart rate, fibromyalgia and migraines. She is status post appendectomy, cholecystectomy, hysterectomy, tonsillectomy, adenoidectomy and right eye surgery. FAMILY HISTORY: Noncontributory. SOCIAL HISTORY: Lives with her and five of her 8 children. Continues to smoke. No alcohol or drugs. ALLERGIES: MULTIPLE INCLUDING ESTROGEN (! PENICILLINS, TYLENOL, EGG, LATEX, LEVOFLOXACIN AND THEOPHYLLINE). MEDICATIONS: MAR reconciled with home medications. REVIEW OF SYSTEMS: As per HPI. Associated symptoms seemed to have resolved. She still has some chest heaviness in the middle of her sternum. Rest of organ system review positive for generalized aches and pains. PHYSICAL EXAMINATION: VITAL SIGNS: From today show a blood pressure of 115/68, heart rate of 76, respiratory rate at 22. She is afebrile. GENERAL: This is a massively obese 42-year-old woman, awake, alert, in no acute distress. HEENT: Shows no scleral icterus. NECK: Supple, without any lymphadenopathy. LUNGS: Clear to auscultation bilaterally. HEART: Has regular rate and rhythm. ABDOMEN: Massively obese, positive bowel sounds. Organs could not be palpated. EXTREMITIES: Show no edema. SKIN: Warm, soft and dry without any rash. LABORATORY DATA: CBC with a WBC of 11.3, hemoglobin 13.9, platelets of 276. Chemistries with a BUN and creatinine of 7 and 0.9, normal electrolytes. Transaminases elevated at 76 and 151, albumin 3.3. Serial troponins negative. Lipid profile grossly abnormal with triglycerides of 197, cholesterol 223 and LDL of 149. IMAGING STUDIES: Chest x-ray obtained in the Emergency Room shows no acute or focal process seen in the chest. Echocardiogram showed ejection fraction of 60-65, left ventricular diastolic function and filling is normal for age. No valvular abnormalities. HOSPITAL COURSE: The patient was admitted to [facility]. She ruled out with serial enzymes and EKGs. Echocardiogram likewise was unremarkable. In further discussion with her, she apparently had seen Dr. Johnson in the past and had been on beta susy and HIREN inhibitors. She had stopped medication when she no longer could afford them. She is willing to give it another try. She will follow up on an outpatient basis with Cardiology. DISCHARGE DATE: 04/15/2017. DISCHARGE DIAGNOSES: Atypical chest pain, suspected gastroesophageal reflux disease. DISCHARGE DISPOSITION: To home. DISCHARGE CONDITION: Improved. DISCHARGE MEDICATIONS: Please refer to MAR. DISCHARGE INSTRUCTIONS: The patient will follow up with PCP and see Cardiology clinic in 2-3 weeks. KIANA SANTANA MD DR: CARINE/nts JOB#: [id number] / [id number] MONO
== END 2017-04-15 17:11 | disposition home or self-care (01) | DRG 392 ==
LOC: ER 03:10 → 5 NORTH 04:00
PROVIDERS: ADMIT Internal Medicine; ATTEND Internal Medicine
DX: K21.9 Gastro-esophageal reflux disease without esophagitis (principal); R07.89 Other chest pain; F32.9 Major depressive disorder, single episode, unspecified; F41.9 Anxiety disorder, unspecified; G43.909 Migraine, unspecified, not intractable, without status migrainosus; E11.42 Type 2 diabetes mellitus with diabetic polyneuropathy; E66.9 Obesity, unspecified; Z96.652 Presence of left artificial knee joint; E78.00 Pure hypercholesterolemia, unspecified; J44.9 Chronic obstructive pulmonary disease, unspecified; M79.7 Fibromyalgia; E78.5 Hyperlipidemia, unspecified; F17.210 Nicotine dependence, cigarettes, uncomplicated; I10 Essential (primary) hypertension; I25.2 Old myocardial infarction; Z83.3 Family history of diabetes mellitus; Z82.49 Family history of ischemic heart disease and other diseases of the circulatory system; Z90.49 Acquired absence of other specified parts of digestive tract; Z90.89 Acquired absence of other organs; Z90.710 Acquired absence of both cervix and uterus; Z88.0 Allergy status to penicillin; Z88.8 Allergy status to other drugs, medicaments and biological substances; Z88.6 Allergy status to analgesic agent; Z88.1 Allergy status to other antibiotic agents; Z91.012 Allergy to eggs; Z91.040 Latex allergy status; Z85.41 Personal history of malignant neoplasm of cervix uteri
CPT/HCPCS: 36415; 71010; 80053; 80061; 82550; 83735; 83880; 84443; 84484; 85027; 85610; 85730; 93005; 96374; 96375; C8929; J2270; J2405; J3010; 99285-25

== ENCOUNTER 2017-05-07 23:08 | Emergency (ER) | payer BC, OTHER ==
[~2017-05-07] VITALS: Ht 160 cm; Wt 104.3 kg
[~2017-05-07 23:08] MED LIST changes: +LISI-338 PO; +METO25TA9 PO; +OXYC5CAP PO; +PANT20TA2 PO
[2017-05-07] MEDS ORDERED: KETOROLAC TROMETHAMINE 60 MG/2 ML INJ. IM ONE (23:30)
[2017-05-07] MEDS ORDERED: ORPHENADRINE CITRATE 60 MG/2 ML VIAL. IM ONE (23:30)
[2017-05-07] MEDS ORDERED: HYDROcodon/IBUPROFEN 7.5/200MG 1 TAB TABLET PO ONE (23:45)
--- NOTE | 2017-05-07 23:52 | PHYS DOC ---
Past Medical History Past Medical History: COPD, Diabetes-Type II, Fibromyalgia, High Cholesterol, Hypertension, [place], Migraines, Other Additional Past Medical Histor: rapid heart rate CERVICAL CANCER Past Surgical History: Appendectomy, Cholecystectomy, Hysterectomy, Tonsillectomy, Other Additional Past Surgical Histo: addenoidectomy, CTR, eye surgery Alcohol Use: None Drug Use: None Adult General Chief Complaint Chief Complaint: HEADACHE HPI HPI Patient is a 42 year old female who presents with complaint of left-sided headache and jaw pain. Patient states that her symptoms started suddenly this evening. Patient states that she is under a significant amount of stress at this time as she is currently looking for a new home. The patient states that she started having pain along the left side of her head and jaw after feeling a pop in this area. Patient states that the pain extends down the left side of her neck towards her shoulder and also extends along her left jaw. Patient states that she is having pain when attempting to open her mouth. Patient rates pain currently as 9 out of 10. Patient has history of migraines and states that this pain does not feel similar to migraine. Patient denies any unilateral weakness, loss of vision, or difficulty with speech or swallowing. Patient has not taken any medications to help with her symptoms at this time. Review of Systems Review of Systems Constitutional: Denies fever or chills [] Eyes: Denies change in visual acuity, redness, or eye pain [] HENT: Denies nasal congestion or sore throat [] Respiratory: Denies cough or shortness of breath [] Cardiovascular: No additional information not addressed in HPI [] GI: Denies abdominal pain, nausea, vomiting, bloody stools or diarrhea [] : Denies dysuria or hematuria [] Musculoskeletal: Denies back pain or joint pain [] Integument: Denies rash or skin lesions [] Neurologic: Denies headache, focal weakness or sensory changes [] Endocrine: Denies polyuria or polydipsia [] Current Medications Current Medications Current Medications Medications (Trade) Dose Ordered Sig/Maya Start Time Stop Time Status Last Admin Dose Admin Hydrocodone Bitartrate/ Ibuprofen (Vicoprofen 7.5-200) 1 tab 1X ONCE 05/07/17 23:45 05/07/17 23:46 UNV 05/07/17 23:50 1 TAB Ketorolac Tromethamine (Toradol Im) 60 mg 1X ONCE 05/07/17 23:30 05/07/17 23:31 05/07/17 23:50 60 MG Orphenadrine Citrate (Norflex) 60 mg 1X ONCE 05/07/17 23:30 05/07/17 23:31 UNV 05/07/17 23:50 60 MG Allergies Allergies Allergies Coded Allergies Type Severity Reaction Last Updated Verified acetaminophen Allergy Severe throat swelling 11/24/16 Yes latex Allergy Severe anaphylaxis 11/24/16 Yes levofloxacin Allergy Severe rash 11/24/16 Yes Estrogens Allergy Intermediate rash 11/24/16 Yes Penicillins Allergy Intermediate 04/15/17 Yes theophylline Allergy Intermediate 04/15/17 Yes egg Adverse Reaction Intermediate nausea, vomiting 11/24/16 Yes Physical Exam Physical Exam Constitutional: Alert, afebrile, appears in moderate discomfort. [] HENT: Normocephalic, tenderness to palpation along left parietal scalp, bilateral external ears normal, palpable crepitus with jaw opening along left TMJ, oropharynx moist, no oral exudates, nose normal. [] Eyes: PERRLA, EOMI, conjunctiva normal, no discharge. [] Neck: There is palpation along left paraspinous muscles extending towards left shoulder, no tenderness, supple, no stridor. [] Cardiovascular:Heart rate regular rhythm, no murmur [] Lungs & Thorax: Bilateral breath sounds clear to auscultation [] Abdomen: Bowel sounds normal, soft, no tenderness, no masses, no pulsatile masses. [] Skin: Warm, dry, no erythema, no rash. [] Back: No tenderness, no CVA tenderness. [] Extremities: No tenderness, no cyanosis, no clubbing, ROM intact, no edema. [] Neurologic: Alert and oriented X 3, normal motor function, normal sensory function, no focal deficits noted. [] Current Patient Data Vital Signs Vital Signs Date Time Temp Pulse Resp B/P (MAP) Pulse Ox O2 Delivery O2 Flow Rate FiO2 05/07/17 23:15 98.2 88 18 172/89 (116) 99 Room Air 98.2 EKG EKG Not performed [] Radiology/Procedures Radiology/Procedures Not performed [] Course & Med Decision Making Course & Med Decision Making Pertinent Labs and Imaging studies reviewed. (See chart for details) Patient was treated with IM Norflex, Toradol, and given oral Vicoprofen in the emergency department. On reevaluation, patient's pain has improved at this time. The patient will continue on Flexeril and Naprosyn for outpatient treatment of tension type headache and TMJ arthralgia. Advise follow-up in 3-5 days a primary doctor and return to emergency department for any worsening symptoms. Patient was understanding and in agreement with treatment plan. Dragon Disclaimer Dragon Disclaimer This electronic medical record was generated, in whole or in part, using a voice recognition dictation system. Departure Departure Impression: Primary Impression: Tension type headache Additional Impression: TMJ arthralgia Disposition: 01 HOME, SELF-CARE Condition: IMPROVED Referrals: NO PCP (PCP) Patient Instructions: Temporomandibular Joint Pain-Brief, Tension Headache Additional Instructions: Follow-up with your primary doctor in the next 3-5 days. Return to the emergency department for any worsening symptoms. Scripts Naproxen (NAPROSYN) 500 Mg Tablet 1 TAB PO BID Y for INFLAMMATION, #20 TAB 0 Refills Prov: MARILEE URBANO MD 05/08/17 Cyclobenzaprine Hcl (CYCLOBENZAPRINE HCL) 10 Mg Tablet 1 TAB PO TID Y for MUSCLE SPASMS, #30 TAB Prov: MARILEE URBANO MD 05/08/17 Problem Qualifiers Primary Impression: Tension type headache Headache chronicity pattern: acute headache Intractability: not intractable Qualified Codes: G44.209 - Tension-type headache, unspecified, not intractable Additional Impression: TMJ arthralgia Laterality: left Qualified Codes: M26.622 - Arthralgia of left temporomandibular joint MARILEE URBANO MD May 07, 2017 23:52
[2017-05-08] MEDS ORDERED: NAPR500T PO
[2017-05-08] MEDS ORDERED: CYCL10TA2 PO
[2017-05-08 00:15] VITALS: BP 133/90
== END 2017-05-08 00:33 | disposition home or self-care (01) ==
LOC: ER 23:08
DX: G44.209 Tension-type headache, unspecified, not intractable (principal); M26.622 Arthralgia of left temporomandibular joint; J44.9 Chronic obstructive pulmonary disease, unspecified; E11.9 Type 2 diabetes mellitus without complications; M79.7 Fibromyalgia; E78.00 Pure hypercholesterolemia, unspecified; I10 Essential (primary) hypertension; I25.2 Old myocardial infarction; G43.909 Migraine, unspecified, not intractable, without status migrainosus; Z88.0 Allergy status to penicillin; Z88.8 Allergy status to other drugs, medicaments and biological substances; Z88.6 Allergy status to analgesic agent; Z88.1 Allergy status to other antibiotic agents; Z91.012 Allergy to eggs; Z91.040 Latex allergy status
CPT/HCPCS: 96372; 99284; J1885; J2360